=== PATIENT | female | born 1980 | race African-American/Black ===

== ENCOUNTER 2022-12-09 23:04 | Inpatient (IN) | payer SELFPAY ==
[~2022-12-09] VITALS: Ht 175.3 cm; Wt 59.0 kg
[2022-12-09 23:11] VITALS: O2SAT 100
[2022-12-09] MEDS ORDERED: NALOXONE HCL 0.4 MG/ML 1ML VIAL IV STA (23:49)
[2022-12-09 23:53] LABS: BG BASE EXCESS -2.4 mmol/L (-2.0-2.0); BG CARBOXYHEMOGLOBIN 0.3 % (0.5-1.5); BG FRACTION INSPIRED OXYGEN 21; BG HCO3 ACT 22.4 mmol/L (22.0-26.0); BG OXYHEMOGLOBIN 94.7 % (94.0-97.0); BG PCO2 38.6 mmHg (35.0-45.0); BG PH 7.382 (7.350-7.450); BG SAMPLE SITE LEFT RADIAL; BG TOTAL HEMOGLOBIN 10.9 g/dL (12.0-18.0); BG VENT MODE ROOM AIR
[2022-12-10] MEDS ORDERED: SODIUM CHLORIDE 0.9% 1,000 ML IV ONE
[2022-12-10 00:27] LABS: CLARITY URINE CLEAR (CLEAR); COLOR URINE YELLOW (YELLOW); GLUCOSE URINE NEGATIVE (NEGATIVE); KETONES URINE NEGATIVE (NEGATIVE); LEUKOCYTE ESTERASE URINE NEGATIVE (NEGATIVE); NITRITE URINE NEGATIVE (NEGATIVE); OCCULT BLOOD URINE NEGATIVE (NEGATIVE); PH URINE 6.5 (4.5-8.0); PROTEIN URINE NEGATIVE (NEGATIVE); SPECIFIC GRAVITY URINE 1.008 (1.005-1.030); UROBILINOGEN URINE 0.2 E.U./dL (0.2-1.0)
[2022-12-10 00:27] LABS: CHLORIDE 101 mEq/L (98-107); INDEX HEMOLYSI 1 (1-3); INDEX ICTERIC 1 (1-4); INDEX LIPEMIC 1 (1-3); SODIUM 133 mEq/L (136-145)
[2022-12-10 00:39] LABS: LACTIC ACID 3.9 mmol/L (0.4-2.0)
[2022-12-10 00:40] LABS: *AMPHETAMINES SCREEN URINE NEGATIVE (NEGATIVE); *BARBITURATES SCREEN URINE NEGATIVE (NEGATIVE); *BENZODIAZEPINES SCREEN URINE NEGATIVE (NEGATIVE); *COCAINE SCREEN URINE NEGATIVE (NEGATIVE); CANNABINOID URINE SCREEN NEGATIVE (NEGATIVE); ECSTASY MDMA SCREEN URINE NEGATIVE (NEGATIVE); METHADONE URINE SCREEN NEGATIVE (NEGATIVE); OPIATES URINE SCREEN NEGATIVE (NEGATIVE); PHENCYCLIDINE URINE SCREEN NEGATIVE (NEGATIVE)
[2022-12-10 00:44] LABS: CARBON DIOXIDE 21 mEq/L (21-32); POTASSIUM 2.2 mEq/L (3.5-5.1)
[2022-12-10 00:45] LABS: ALANINE AMINOTRANSFERASE 46 IU/L (13-61); ALBUMIN 2.6 g/dL (3.4-5.0); ASPARTATE AMINOTRANSFERASE 113 IU/L (15-37); BILIRUBIN TOTAL 0.2 mg/dL (0.1-1.0); CALCIUM 6.1 mg/dL (8.5-10.1); CREATININE 0.3 mg/dL (0.6-1.3); GLUCOSE 117 mg/dL (70-105); HCG SCREEN NEGATIVE; UREA NITROGEN BLOOD 3 mg/dL (7-21)
[2022-12-10 00:46] LABS: BASOPHILS % 0.6 % (0.0-2.0); EOSINOPHILS % 0.1 % (0.0-5.0); HEMATOCRIT. 28.1 % (36.0-48.0); HEMOGLOBIN. 9.5 g/dL (12.0-16.0); MEAN CORPUSCULAR HEMOGLOBIN 31.7 pg (28.0-32.0); MEAN CORPUSCULAR HGB CONC 33.8 g/dL (31.0-37.0); MEAN CORPUSCULAR VOLUME 93.9 fL (81.0-99.0); MEAN PLATELET VOLUME 7.1 fl (7.4-10.4); MONOCYTES % 12.7 % (2.0-8.0); NEUTROPHILS % 43.6 % (40.0-76.0); PLATELET 145 x1000/uL (130-400); RED BLOOD CELL COUNT 2.99 mill/uL (4.2-5.4); RED CELL DISTRIBUTION WIDTH 14.9 % (11.6-14.6); TROPONIN I HIGH SENSITIVITY 4 ng/L (<54); WHITE BLOOD COUNT 3.1 x1000/uL (4.5-11.0)
[2022-12-10 00:48] LABS: ACETAMINOPHEN < 2 ug/mL (10-30); THYROID STIMULATING HORMONE 0.24 uIU/mL (0.36-3.74)
[2022-12-10] MEDS ORDERED: KCL 20MEQ/100ML PREMIX 100 ML IV STA (00:53)
[2022-12-10 00:57] LABS: CREATINE KINASE 2905 IU/L (26-192)
[2022-12-10] MEDS ORDERED: MAGNESIUM 2 G PREMIX 50 ML IV ONE (01:00)
[2022-12-10] MEDS ORDERED: SODIUM CHLORIDE 0.9% 1000ML BAG (SEPSIS BOLUS) IV ONE (01:00)
[2022-12-10] MEDS ORDERED: KCL 20MEQ/100ML PREMIX 100 ML IV ONE (01:00)
[2022-12-10] MEDS ORDERED: CEFTRIAXONE 1GM PREMIX 50 ML IV ONE (01:00)
[2022-12-10 01:33] LABS: ETHANOL BLOOD 529 mg/dL (-10)
[2022-12-10] MEDS ORDERED: IOHEXOL-350 100 ML BOTTLE ONE (01:51)
[2022-12-10 02:03] LABS: PROTHROMBIN TIME 11.1 sec (9.6-11.0)
[2022-12-10] MEDS ORDERED: HYDROCODONE/ACETAMINOPHEN 5/325MG TABLET PO PRN (07:45)
[2022-12-10] MEDS ORDERED: ONDANSETRON HCL 4MG/2ML INJ IV PRN (07:45)
[2022-12-10] MEDS ORDERED: ACETAMINOPHEN 325MG TABLET PO PRN (07:45)
[2022-12-10 08:10] VITALS: BP 114/74; PULSE 76; RESP 18; TEMP 98.2
[2022-12-10] MEDS ORDERED: POTASSIUM CHLORIDE INJ 20 MEQ in SODIUM CHLORIDE 0.9% 1,000 ML IV SCH (09:00)
[2022-12-10] MEDS ORDERED: THIAMINE HCL 100MG TABLET PO SCH (09:00)
[2022-12-10] MEDS ORDERED: FOLIC ACID 1MG TABLET PO SCH (09:00)
[2022-12-10] MEDS ORDERED: MULTIVITAMINS,THER W-MINERALS TABLET PO SCH (09:00)
[2022-12-10] MEDS ORDERED: PANTOPRAZOLE SODIUM 40 MG/VIAL IV SCH (09:00)
[2022-12-10] MEDS: LORAZEPAM 2MG/ML CPJ IV PRN ×2 (09:29→15:40)
[2022-12-10] MEDS ORDERED: NALOXONE HCL 0.4MG/ML VIAL IV PRN (10:00)
[2022-12-10] MEDS: SODIUM CHL 0.9% + KCL 20MEQ/L 1,000 ML IV SCH ×2 (10:02→16:23)
[2022-12-10 11:01] VITALS: BP 114/78; PULSE 115; RESP 18; TEMP 98.2
[2022-12-10 11:29] LABS: HEMATOCRIT. 26.8 % (36.0-48.0); HEMOGLOBIN. 9.1 g/dL (12.0-16.0); MEAN CORPUSCULAR HEMOGLOBIN 31.4 pg (28.0-32.0); MEAN CORPUSCULAR VOLUME 92.4 fL (81.0-99.0); MEAN PLATELET VOLUME 6.7 fl (7.4-10.4); PLATELET 142 x1000/uL (130-400); RED CELL DISTRIBUTION WIDTH 16.4 % (11.6-14.6); WHITE BLOOD COUNT 2.7 x1000/uL (4.5-11.0)
[2022-12-10 11:32] LABS: DIFFERENTIAL COMMENT 1
[2022-12-10 11:47] LABS: CHLORIDE 116 mEq/L (98-107); INDEX HEMOLYSI 1 (1-3); INDEX ICTERIC 1 (1-4); INDEX LIPEMIC 1 (1-3); POTASSIUM 3.3 mEq/L (3.5-5.1); SODIUM 146 mEq/L (136-145)
[2022-12-10 11:54] LABS: CARBON DIOXIDE 24 mEq/L (21-32); CREATININE 0.4 mg/dL (0.6-1.3); GLUCOSE 97 mg/dL (70-105); UREA NITROGEN BLOOD 4 mg/dL (7-21)
[2022-12-10 12:00] VITALS: BP 111/75; PULSE 88; RESP 17; TEMP 97.5
[2022-12-10 12:06] LABS: ALANINE AMINOTRANSFERASE 124 IU/L (13-61); ALBUMIN 2.9 g/dL (3.4-5.0); ASPARTATE AMINOTRANSFERASE 669 IU/L (15-37); BILIRUBIN TOTAL 0.2 mg/dL (0.1-1.0); CALCIUM 7.1 mg/dL (8.5-10.1); CARBON DIOXIDE 24 mEq/L (21-32); CREATINE KINASE 2727 IU/L (26-192); CREATININE 0.4 mg/dL (0.6-1.3); GLUCOSE 96 mg/dL (70-105); UREA NITROGEN BLOOD 4 mg/dL (7-21)
[2022-12-10 12:08] LABS: LACTIC ACID 3.8 mmol/L (0.4-2.0)
[2022-12-10 13:01] LABS: ANISOCYTOSIS 1+; PLATELET ESTIMATE NORMAL
[2022-12-10] MEDS ORDERED: CHLORDIAZEPOXIDE 25MG CAPSULE PO SCH (14:00)
[2022-12-10] MEDS ORDERED: ALPRAZOLAM 0.25 MG TABLET PO SCH (14:00)
[2022-12-10 16:00] VITALS: BP 110/71; PULSE 83; RESP 18; TEMP 97.6
[2022-12-10 16:24] LABS: HEMATOCRIT 27.5 % (36.0-48.0); HEMOGLOBIN 9.2 g/dL (12.0-16.0); MEAN CORPUSCULAR HEMOGLOBIN 30.9 pg (28.0-32.0); MEAN CORPUSCULAR HGB CONC 33.5 g/dL (31.0-37.0); MEAN CORPUSCULAR VOLUME 92.2 fL (81.0-99.0); PLATELET 150 x1000/uL (130-400); RED BLOOD CELL COUNT 2.98 mill/uL (4.2-5.4); RED CELL DISTRIBUTION WIDTH 16.4 % (11.6-14.6); WHITE BLOOD COUNT 2.6 x1000/uL (4.5-11.0)
[2022-12-10 16:43] LABS: INDEX HEMOLYSI 1 (1-3)
[2022-12-10 16:46] LABS: AMMONIA 70 uMol/L (<32)
[2022-12-10 16:51] LABS: POTASSIUM 3.8 mEq/L (3.5-5.1)
== END 2022-12-10 19:55 | disposition left against medical advice (07) | DRG 48 ==
LOC: ER 23:04 → EDBD 23:04 → MICUSO 12-10 03:52 → 8WST 12-10 04:01
PROVIDERS: ADMIT Family Medicine Adult Medicine; ATTEND Family Medicine Adult Medicine
DX: G90.8 Other disorders of autonomic nervous system (principal); E43 Unspecified severe protein-calorie malnutrition; D64.9 Anemia, unspecified; D72.819 Decreased white blood cell count, unspecified; Z68.1 Body mass index [BMI] 19.9 or less, adult; Z53.29 Procedure and treatment not carried out because of patient's decision for other reasons; E83.42 Hypomagnesemia; E87.6 Hypokalemia; F10.129 Alcohol abuse with intoxication, unspecified; F41.9 Anxiety disorder, unspecified; Y90.8 Blood alcohol level of 240 mg/100 ml or more
CPT/HCPCS: 36415; 36600; 70496; 70498; 71045; 80048; 80053; 80305; 80307; 80320; 80329; 81003; 82140; 82375; 82550; 82805; 82962; 83605; 83735; 83930; 84132; 84443; 84484; 84703; 85025; 85027; 86850; 86900; 99291; C9113; J0696; J2060; J2310; J3475; J3480; J7030; Q9967; G0480